=== PATIENT | male | born 1935 | race Caucasian/White ===

== ENCOUNTER 2017-10-01 13:19 | Inpatient (IN) | payer OTHER ==
[~2017-10-01] VITALS: Ht 167.6 cm; Wt 98.2 kg
[2017-10-09] MEDS ORDERED: PRAVASTATIN SOD40 MG PO (12:17)
[2017-10-09] MEDS ORDERED: MAGNESIUM 300300 MG PO (12:18)
[2017-10-09] MEDS ORDERED: BISOPROLOL-HCT1 EACH PO (12:18)
[2017-10-09] MEDS ORDERED: COQ-10100 MG PO (12:19)
[2017-10-09] MEDS ORDERED: POTASSIUM CHLO20 ME2 PO (12:19)
[2017-10-10] MEDS ORDERED: LOVASTATIN20 MG PO (11:47)
[2017-10-10] MEDS ORDERED: ASPIRIN81 M2 PO (11:47)
[2017-10-15] MEDS ORDERED: NAPROSYN500 MG PO (08:50)
[2017-10-15] MEDS ORDERED: TYLENOL ARTHRI650 MG PO (08:53)
[2017-10-16 05:56] VITALS: BP 146/85
[2017-10-16 13:07] VITALS: BP 121/79
[2017-10-16 16:07] VITALS: BP 115/75
[2017-10-16 20:31] VITALS: BP 113/73
[2017-10-17 00:05] VITALS: BP 151/91
[2017-10-17 04:02] VITALS: BP 134/82
[2017-10-17 05:42] LABS: HEMATOCRIT 36.1 % (38.0-50.0); HEMOGLOBIN 11.9 G/DL (12.5-16.6); MCV 89.1 FL (86-99)
[2017-10-17 08:22] VITALS: BP 128/82
[2017-10-17] MEDS ORDERED: ZOFRAN4 MG PO (08:37)
[2017-10-17] MEDS ORDERED: HYDROCODON-ACE1 EAC7 PO (08:44)
== END 2017-10-17 11:03 | disposition home or self-care (01) | DRG 483 ==
LOC: 2SOUTH 13:19 → ENRESERV 10-15 22:03 → 2SOUTH 10-16 05:21 → ENRESERV 10-16 10:49 → 3EAST 10-16 12:01 → 2SOUTH 10-16 12:15 → 3EAST 10-17 11:03
PROVIDERS: Orthopaedic Surgery
PROC: 0RRJ00Z Replacement of Right Shoulder Joint with Reverse Ball and Socket Synthetic Substitute, Open Approach (ICD-10-PCS; principal; 2017-10-16)
DX: M19.011 Primary osteoarthritis, right shoulder (principal); I10 Essential (primary) hypertension; E78.5 Hyperlipidemia, unspecified; M65.811 Other synovitis and tenosynovitis, right shoulder; E66.9 Obesity, unspecified; M75.101 Unspecified rotator cuff tear or rupture of right shoulder, not specified as traumatic; Z88.0 Allergy status to penicillin; Z79.82 Long term (current) use of aspirin; Z82.49 Family history of ischemic heart disease and other diseases of the circulatory system; Z80.6 Family history of leukemia; Z83.3 Family history of diabetes mellitus; Z68.34 Body mass index [BMI] 34.0-34.9, adult; Z88.5 Allergy status to narcotic agent; Z87.891 Personal history of nicotine dependence; E78.6 Lipoprotein deficiency; M24.011 Loose body in right shoulder
CPT/HCPCS: 85014; 85018; C1713; J0131; J0171; J0330; J0690; J1100; J1170; J2270; J2405; J2795; J3010; J7030; J7050

== ENCOUNTER 2017-10-10 10:47 | Day surgery (SDC) | payer OTHER ==
[~2017-10-10] VITALS: Ht 172.7 cm; Wt 94.3 kg
[~2017-10-10 10:47] MED LIST: BISOPROLOL-HCT1 EACH PO; COQ-10100 MG PO; MAGNESIUM 300300 MG PO; POTASSIUM CHLO20 ME2 PO; PRAVASTATIN SOD40 MG PO
[2017-10-10] MEDS ORDERED: LOVASTATIN20 MG PO (11:47)
[2017-10-10] MEDS ORDERED: ASPIRIN81 M2 PO (11:47)
== END 2017-10-10 18:40 | disposition home or self-care (01) ==
LOC: CATH 10:47
DX: I25.10 Atherosclerotic heart disease of native coronary artery without angina pectoris (principal); I25.82 Chronic total occlusion of coronary artery; I35.0 Nonrheumatic aortic (valve) stenosis; I71.6 Thoracoabdominal aortic aneurysm, without rupture; I10 Essential (primary) hypertension; E78.5 Hyperlipidemia, unspecified; M19.90 Unspecified osteoarthritis, unspecified site; Z82.49 Family history of ischemic heart disease and other diseases of the circulatory system; Z83.3 Family history of diabetes mellitus; Z80.6 Family history of leukemia; Z80.42 Family history of malignant neoplasm of prostate
CPT/HCPCS: C1760; C1769; C1887; C1894; J1644; J2250; J7040

== ENCOUNTER 2017-10-26 16:44 | Emergency (ER) | payer OTHER ==
[~2017-10-26] VITALS: Ht 167.6 cm; Wt 94.5 kg
[~2017-10-26 16:44] MED LIST changes: +ASPIRIN81 M2 PO; +HYDROCODON-ACE1 EAC7 PO; +LOVASTATIN20 MG PO; +NAPROSYN500 MG PO; +TYLENOL ARTHRI650 MG PO; +ZOFRAN4 MG PO
[2017-10-26 18:02] LABS: HEMATOCRIT 37.3 % (38.0-50.0); HEMOGLOBIN 12.6 G/DL (12.5-16.6); MCH 29.5 PG (29.0-34.0); MCHC 33.8 G/DL (30.0-36.0); MCV 87.4 FL (86-99); RBC DIS.WIDTH-SD 41.1 % (39-53); RED BLOOD COUNT 4.27 M/uL (4.00-5.50); WHITE BLOOD COUNT 10.6 K/uL (4.1-10.2)
[2017-10-26 18:06] LABS: PLATELET COUNT 380 K/uL (156-360)
[2017-10-26 18:11] LABS: CHLORIDE 101 mEq/L (99-109); POTASSIUM 3.8 mEq/L (3.7-5.4); SODIUM 139 mEq/L (136-147)
[2017-10-26 18:13] LABS: GLUCOSE 109 mg/dL (70-99)
[2017-10-26 18:17] LABS: GFR ESTIMATE (CALCULATED) > 59 mL/min/ (58.99-99999)
[2017-10-26 18:18] LABS: UREA NITROGEN (BUN) 17 mg/dL (9-23)
[2017-10-26 18:22] LABS: TROP-I INTERPRETATION NEGATIVE; TROPONIN-I < 0.01 ng/mL (0.0-0.30)
[2017-10-26 21:26] VITALS: BP 118/81
[2017-10-26 21:51] LABS: TROP-I INTERPRETATION NEGATIVE; TROPONIN-I 0.01 ng/mL (0.0-0.30)
== END 2017-10-26 21:27 | disposition home or self-care (01) ==
LOC: EME 16:44
PROVIDERS: Physician Assistant
DX: R06.02 Shortness of breath (principal); T39.1X5A Adverse effect of 4-Aminophenol derivatives, initial encounter; I77.810 Thoracic aortic ectasia; Z79.82 Long term (current) use of aspirin; Z98.890 Other specified postprocedural states; Z88.0 Allergy status to penicillin
CPT/HCPCS: 71275; 80048; 84484; 85027; 93005